=== PATIENT | male | born 1960 | race Hispanic/Latino ===

== ENCOUNTER 2019-09-10 10:03 | Outpatient (CLI) | payer BC ==
--- NOTE | 2019-09-10 11:31 | Cat Scan Report ---
CT abdomen pelvis wo con INDICATION / CLINICAL INFORMATION: OTHER MICROSCOPIC HEMATURIA. TECHNIQUE: Routine CT of the abdomen and pelvis without IV contrast All CT scans at this location are performed using CT dose reduction for ALARA by means of automated exposure control. COMPARISON: None available. FINDINGS: There appears to be mild dilatation involving the left collecting system versus multiple parapelvic c ysts. No obstructive ureteral calculus is identified. The right kidney appears unremarkable. The live r, spleen, pancreas adrenal glands are unremarkable. No free air or free fluid. No bowel obstruction. Sigmoid diverticulosis. Urinary bladder is mostly collapsed. The prostate appears mildly enlarged an d may be extruded into the base of the urinary bladder. No free pelvic fluid. IMPRESSION: 1. Possible left-sided hydronephrosis versus multiple left-sided parapelvic cyst. Dedicated renal ult rasound may be useful for further evaluation. 2. Mildly enlarged prostate which appears to be extruding into the base of the urinary bladder. Signer Name: Jorge Gabriel MD Signed: 09/10/2019 11:26 AM Workstation Name: [id number]
== END 2019-09-10 10:04 | disposition home or self-care (01) ==
LOC: CT 10:03
PROVIDERS: ATTEND Urology
DX: K57.30 Diverticulosis of large intestine without perforation or abscess without bleeding (principal); N40.0 Benign prostatic hyperplasia without lower urinary tract symptoms; R31.29 Other microscopic hematuria
CPT/HCPCS: 74176